=== PATIENT | male | born 1955 | race Caucasian/White ===

== ENCOUNTER 2017-10-08 14:54 | Observation (INO) | payer OTHER ==
[~2017-10-08] VITALS: Ht 167.6 cm; Wt 197.0 kg
[2017-10-08] MEDS ORDERED: MAALOX/HYOSCYAMINE/LIDOCAINE 45 ML BTL PO ONE (15:30)
[2017-10-08 15:39] LABS: HEMOGLOBIN 15.8 g/dL (13.7-18.0); WHITE BLOOD COUNT 6.5 x10^3/uL (3.4-10)
[2017-10-08 15:51] LABS: BLOOD UREA NITROGEN 18 mg/dL (7-18)
[2017-10-08 15:56] LABS: ASPARTATE AMINO TRANSFERASE 14 U/L (15-37)
[2017-10-08 15:59] LABS: IS PT STATUS REG ER OR PRE ER? YES
[2017-10-08] MEDS ORDERED: LISI-170 PO (16:22)
[2017-10-08] MEDS ORDERED: ATOR40TA PO (16:22)
[2017-10-08] MEDS ORDERED: MELO7.5T31 PO (16:22)
[2017-10-08] MEDS ORDERED: LAMO25TB PO (16:22)
[2017-10-08] MEDS ORDERED: DIVA125T2 PO (16:22)
[2017-10-08] MEDS ORDERED: QUET25TA PO (16:22)
[2017-10-08] MEDS ORDERED: DOCUSATE 100 MG CAPSULE PO PRN (17:30)
[2017-10-08] MEDS ORDERED: ENALAPRILAT 1.25 MG/ML, 2ML IVPush PRN (17:30)
[2017-10-08] MEDS ORDERED: LABETALOL 5MG/ML, 20ML IVPush PRN (17:30)
[2017-10-08] MEDS ORDERED: BISACODYL 10 MG SUPP PR PRN (17:30)
[2017-10-08] MEDS ORDERED: ENOXAPARIN 40 MG/0.4 ML SQ SCH (17:30)
[2017-10-08] MEDS ORDERED: ONDANSETRON ODT 4 MG PO PRN (17:30)
[2017-10-08] MEDS ORDERED: ACETAMINOPHEN 325 MG TABLET PO PRN (17:30)
[2017-10-08] MEDS ORDERED: ONDANSETRON 2MG/ML, 2ML IVPush PRN (17:30)
[2017-10-08] MEDS ORDERED: MAALOX/HYOSCYAMINE/LIDOCAINE 45 ML BTL ONE (17:38)
[2017-10-08 18:36] VITALS: BP 154/97
[2017-10-08] MEDS: SODIUM CHLORIDE 0.9% 1,000 ML IV SCH (18:58)
[2017-10-08 20:38] VITALS: BP 135/86
[2017-10-08] MEDS ORDERED: ATORVASTATIN 40 MG TABLET PO SCH (21:00)
[2017-10-08] MEDS ORDERED: DIVALPROEX 125 MG TABLET.DR PO SCH (21:00)
[2017-10-08] MEDS ORDERED: LISINOPRIL 20 MG TABLET PO SCH (21:00)
[2017-10-08 21:38] LABS: IS PT STATUS REG ER OR PRE ER? NO
[2017-10-08] MEDS ORDERED: LISI-167 PO (21:44)
[2017-10-08] MEDS ORDERED: DIVA500T17 PO (21:44)
[2017-10-08] MEDS ORDERED: LAMO100T63 PO (21:44)
[2017-10-08] MEDS ORDERED: TAMS0.4C2 PO (21:44)
[2017-10-08] MEDS ORDERED: QUET200T PO (21:44)
[2017-10-08] MEDS ORDERED: MELO15TA24 PO (21:44)
[2017-10-08] MEDS ORDERED: OMEP-110 PO (21:46)
[2017-10-09 03:19] LABS: HEMATOCRIT 44.9 % (39.2-51.8); HEMOGLOBIN 15.2 g/dL (13.7-18.0)
[2017-10-09 03:20] VITALS: BP 148/86
[2017-10-09 03:27] LABS: ASPARTATE AMINO TRANSFERASE 12 U/L (15-37); BLOOD UREA NITROGEN 18 mg/dL (7-18)
[2017-10-09 03:31] LABS: IS PT STATUS REG ER OR PRE ER? NO
[2017-10-09] MEDS: SODIUM CHLORIDE 0.9% 1,000 ML IV SCH (04:05)
[2017-10-09] MEDS ORDERED: REGADENOSON 0.4 MG/5 ML SYRINGE ONE (08:21)
[2017-10-09 08:54] VITALS: BP 147/92
[2017-10-09] MEDS ORDERED: SENNA/DOCUSATE TABLET PO SCH (09:00)
[2017-10-09] MEDS ORDERED: LISI-170 PO (13:43)
[2017-10-09] MEDS ORDERED: ASPI-515 PO (13:43)
== END 2017-10-09 17:44 | disposition home or self-care (01) ==
LOC: ED 17:28 → EDIP 17:45 → INTOOBSV 17:45 → 5SO 18:29
PROVIDERS: ADMIT Hospitalist; ATTEND Hospitalist
DX: R07.2 Precordial pain (principal); I10 Essential (primary) hypertension; E78.5 Hyperlipidemia, unspecified; F31.9 Bipolar disorder, unspecified; I25.10 Atherosclerotic heart disease of native coronary artery without angina pectoris; I35.0 Nonrheumatic aortic (valve) stenosis; I35.1 Nonrheumatic aortic (valve) insufficiency; N40.0 Benign prostatic hyperplasia without lower urinary tract symptoms; Z82.3 Family history of stroke; Z82.49 Family history of ischemic heart disease and other diseases of the circulatory system
CPT/HCPCS: 36415; 71010; 78452; 80053; 80061; 83735; 84100; 84439; 84443; 84484; 85025; 93005; 93017; 93306; 96360; 96361; 99285; A9502; C9898; G0378; J2785; J7030